=== PATIENT | male | born 2000 | race Hispanic/Latino ===

== ENCOUNTER 2023-12-21 18:17 | Emergency (ER) | payer SELFPAY ==
[2023-12-21 18:27] VITALS: BP 153/83; BMI 33.9
--- NOTE | 2023-12-21 18:35 | ED.GENMED ---
History of Present Illness
General
Chief Complaint: Head Injury
Time Seen by Provider: 12/21/23 18:35
Travel History
Have you had any contact with someone who has COVID-19?: No
Do you have any symptoms of coronavirus? Fever > 100 degrees, chills, cough, shortness of breath, sore throat, loss of taste or smell, muscle aches, or headache?: No
History of Present Illness
History of Present Illness:
HPI: The patient presents due to a head injury. 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 He feels like he is in a fog. He had
trouble working today. He also describes pain along the muscles of the anterior neck. He has no significant posterior neck pain.
EXAM:
GENERAL: Well appearing in no distress
CERVICAL SPINE: No midline c-spine tenderness with excellent AROM, there is some mild tenderness along the sternocleidomastoid musculature of the anterior neck bilaterally
HEAD: No evidence of craniofacial trauma
CHEST: No chest wall tenderness, normal heart sounds
LUNGS: Equal lung sounds, no respiratory distress
ABDOMEN: No abdominal tenderness, no peritoneal signs
EXTREMITIES: Normal active range of motion, no tenderness
NEURO: Excellent strength all extremities, appropriate mental status, normal speech/language
TIME OF INITIAL ENCOUNTER: 7 PM
NUMBER AND COMPLEXITY OF PROBLEMS ADDRESSED AT THE ENCOUNTER
� Chronic conditions affecting care: History of seizures
� Acute Exacerbation and/or Progression of Chronic Illness: This is an acute
� Differential Diagnosis includes: Minor head injury, concussion, cervical strain, anterior neck strain, intracranial hemorrhage
AMOUNT AND/OR COMPLEXITY OF DATA TO BE REVIEWED AND ANALYZED
� I performed an independent evaluation of and my interpretation is:
EKG:
CT: CT imaging shows no acute abnormality
X-rays:
Laboratory Studies:
Other:
� Review of other/old records: No old records available for review
� Clinical information was obtained by an independent historian: None needed
� Prescriptions/Medications Considered but not given:
� Further testing considered but not performed:
RISK OF COMPLICATIONS AND/OR MORBIDITY OR MORTALITY OF PATIENT MANAGEMENT
� Social determinants of health affecting care: Lives at home
� Discussion with other providers:
� Escalation of care including admission/observation vs risk of discharge considered: CT imaging unremarkable. Favor more of a concussion but likely also has an anterior neck strain. Recommended NSAIDs. I also encouraged
limited strenuous activity and prefer him to rest as opposed to working strenuous job.
Phy Exam
Physical Exam
Physical Exam:
See HPI
Course
Orders/Labs/Results
Orders:
Orders
12/21/23 18:30
CT Head W/o Iv Contrast Urgent
Comment:
Reason For Exam: concussion head injury 12/20/23
Vital Signs
Initial and Last Documented VS:
Initial Vital Signs
Temp Pulse Resp BP Pulse Ox
97.9 F 67 16 153/83 99
12/21/23 18:27 12/21/23 18:27 12/21/23 18:27 12/21/23 18:27 12/21/23 18:27
Last Documented Vital Signs
Temp Pulse Resp BP Pulse Ox
97.9 F 67 16 153/83 99
12/21/23 18:27 12/21/23 18:27 12/21/23 18:27 12/21/23 18:27 12/21/23 18:27
*Critical Care Note
Total Time (30-74mins, 75-104mins- exclusive of procedures): Not Applicable
ED Attending Note
-
Portions of this chart may have been created with voice recognition software.� Occasional wrong word or��sound alike� substitutions may have occurred due to the inherent limitations of voice recognition software.
Discharge Plan
Departure
Patient Disposition: Home (Routine Discharge)
Date of Disposition: 12/21/23
Time of Disposition: 19:00
Patient with high blood pressure during this ER visit?: Yes
Discharge Problem:
Concussion
Instructions: Concussion, Adult (DC), Cervical Muscle Strain (DC)
Activity Restrictions/Additional Instructions:
Please follow-up your primary care doctor. I recommend 3-4 [id number] ibuprofen (Motrin) every 8 hours with food for a few days. Return here if worse. Since her symptoms are generally can distant with a concussion, I do recommend no
strenuous activities with your primary care doctor.
Interventions
Interventions:
*Risk Screen - Suicide Last Done: 12/21/23 18:27
*Neglect/Abuse Screening Last Done: 12/21/23 18:27
*ED COVID-19 Vaccine History Last Done: 12/21/23 18:27
Discharge Date and Time
Print Language: AMHARIC
[2023-12-21 19:38] VITALS: BP 145/80
== END 2023-12-21 19:40 | disposition home or self-care (01) ==
LOC: EMR 18:17
PROVIDERS: EMERGENCY PHYSICIAN Emergency Medicine; FAMILY PHYSICIAN Family Medicine
DX: S06.0XAA Concussion with loss of consciousness status unknown, initial encounter (principal); W50.0XXA Accidental hit or strike by another person, initial encounter; R03.0 Elevated blood-pressure reading, without diagnosis of hypertension
CPT/HCPCS: 99284; 70450